=== PATIENT | male | born 1995 | race Caucasian/White ===

== ENCOUNTER 2017-01-18 17:18 | Emergency (ER) | payer BC ==
[~2017-01-18] VITALS: Ht 172.7 cm; Wt 68.0 kg
[2017-01-18 17:20] VITALS: BP 147/90; PULSE 115; RESP 24; TEMP 98.4; O2SAT 97
[2017-01-18] MEDS ORDERED: ALBU0.08 NEB (17:31)
[2017-01-18] MEDS ORDERED: SODIUM CHLOR 0.9% 1000 ML INJ 100 ML IV ONE (17:41)
[2017-01-18] MEDS ORDERED: SODIUM CHLOR 0.9% 1000 ML INJ 1,000 ML IV ONE ×2 (17:41)
[2017-01-18 17:45] VITALS: O2SAT 95
[2017-01-18] MEDS ORDERED: RESP: ALBUTEROL 2.5 MG/IPRATROPIUM 0.5 MG NEB (SCH) INH ONE (17:45)
[2017-01-18] MEDS ORDERED: SODIUM CHLORIDE 0.9% FLUSH 10 ML FLUSH IVF PRN (17:45)
[2017-01-18] MEDS ORDERED: methylPREDNISolone SOD SUCC 125 MG/2 ML VIAL IVP ONE (17:45)
[2017-01-18] MEDS: RESP: ALBUTEROL 2.5 MG/3 ML NEB (SCH) INH ×2 (17:59→19:27)
--- NOTE | 2017-01-18 18:05 | RADRPT ---
EXAM DATE/TIME: 01/18/2017 17:53 [place] COMPARISON: No previous studies available for comparison. INDICATIONS : Shortness of breath. Possible asthma attack. MEDICAL HISTORY : None. SURGICAL HISTORY : None. ENCOUNTER: Initial ACUITY: 1 day PAIN SCORE: 0/10 LOCATION: Bilateral chest FINDINGS: PA and lateral views of the chest demonstrate the lungs to be symmetrically aerated without evidence of mass, infiltrate or effusion. The cardiomediastinal contours are unremarkable. Osseous structure s are intact. CONCLUSION: No acute disease. German Kitchen MD on January 18, 2017 at 18:03 Board Certified Radiologist. This report was verified electronically.
[2017-01-18 18:09] LABS: AUTOMATED NEUTROPHIL # 8.1 TH/MM3 (1.8-7.7); BASOPHIL % 0.3 % (0.0-2.0); EOSINOPHIL # 1.3 TH/MM3 (0-0.4); EOSINOPHIL % 10.3 % (0.0-4.0); HEMATOCRIT 44.7 % (39.0-51.0); HEMO FLAGS DIFF FINAL; LYMPH % 15.5 % (9.0-44.0); LYMPHOCYTE # 1.9 TH/MM3 (1.0-4.8); MEAN CELL VOLUME 83.6 FL (80.0-100.0); MEAN CORPUSCULAR HEMOGLOBIN 28.1 PG (27.0-34.0); MEAN CORPUSCULAR HGB CONC 33.6 % (32.0-36.0); MONO % 8.8 % (0.0-8.0); NEUT % 65.1 % (16.0-70.0); PLATELET COUNT 223 TH/MM3 (150-450); RED BLOOD COUNT 5.35 MIL/MM3 (4.50-5.90); RED CELL DISTRIBUTION WIDTH 14.2 % (11.6-17.2); WHITE BLOOD COUNT 12.5 TH/MM3 (4.0-11.0)
[2017-01-18 18:25] LABS: ANION GAP 9 MEQ/L (5-15); AST (GOT) 19 U/L (15-39); BICARBONATE 25.9 MEQ/L (21.0-32.0); BLOOD UREA NITROGEN 8 MG/DL (7-18); CHLORIDE 103 MEQ/L (98-107); GLOMERULAR FILTRATION RATE 102 ML/MIN (>89); POTASSIUM 3.5 MEQ/L (3.5-5.1); SODIUM (NA) 138 MEQ/L (136-145)
[2017-01-18 18:29] LABS: ALKALINE PHOSPHATASE 97 U/L (45-117); ALT (GPT) 28 U/L (9-52); TOTAL BILIRUBIN ADULT 0.8 MG/DL (0.2-1.0)
[2017-01-18 18:30] LABS: BLOOD, URINE NEG (NEG); COMMENT (UR) CATH-CULT NOT IND; CULTURE IF INDICATED CATH CULTURE NOT IND; GLUCOSE,URINE NEG (NEG); KETONE, URINE NEG (NEG); NITRITE,URINE NEG (NEG); PH, URINE 7.5 (5.0-8.5); URINE COLOR LIGHT-YELLOW (YELLW/STRAW)
--- NOTE | 2017-01-18 19:57 | PD ---
HPI Chief Complaint: Respiratory Symptoms Time Seen by Provider: 17:31 Travel History International Travel<30 days: No Contact w/Intl Traveler<30days: No Traveled to known affect area: No History of Present Illness HPI This is a 21-year-old male with history of asthma, presented to the contents of rest her distress and wheezing. Patient states it started yesterday. His friend is at the bedside states that he tried to get him to come in yesterday however he did not want to at that time. He denies any fevers, chills. He reports wheezing despite using his nebulizer. There is no productive cough. There is no chest pain, chest pressure. PFSH Past Medical History Anxiety: Yes Tetanus Vaccination: < 5 Years Past Surgical History Surgical History: No Previous Surgery Social History Alcohol Use: No Tobacco Use: No Substance Use: No Allergies-Medications (Allergen,Severity, Reaction): Coded Allergies: No Known Allergies (Unverified , 01/18/17) Reported Meds & Prescriptions Reported Meds & Active Scripts Active Medrol Dosepak (Methylprednisolone) 4 Mg Dspk 4 Mg PO DIRECTED Per Pharmacist direction Zithromax Z-Adriano (Azithromycin) 250 Mg Dspk 250 Mg PO DIRECTED 500 MG (2 tabs) day 1, then 1 tab days 2-5. Reported Albuterol Neb (Albuterol Sulfate) 2.5 Mg/3 Ml Neb 2.5 Mg NEB Q4HR NEB While awake Review of Systems Except as stated in HPI: all other systems reviewed are Neg General / Constitutional: No: Fever, Chills HENT: No: Headaches, Lightheadedness Cardiovascular: No: Chest Pain or Discomfort, Palpitations Respiratory: Positive: Cough, Shortness of Breath, Wheezing Gastrointestinal: No: Nausea, Vomiting, Abdominal Pain Musculoskeletal: No: Myalgias, Pain Physical Exam Narrative GENERAL: Well-nourished, well-developed patient. SKIN: Focused skin assessment warm/dry. HEAD: Normocephalic. EYES: No scleral icterus. No injection or drainage. NECK: Supple, trachea midline. No JVD or lymphadenopathy. CARDIOVASCULAR: Regular rate and rhythm without murmurs, gallops, or rubs. RESPIRATORY: Bilateral diffuse expiratory wheezes. No Rales. GASTROINTESTINAL: Abdomen soft, non-tender, nondistended. MUSCULOSKELETAL: No cyanosis, or edema. NEUROLOGICAL: Awake and alert. Cranial nerves II through XII intact. Motor grossly within normal limits. Five out of 5 muscle strength in all muscle groups. Normal speech. Data Data Last Documented VS Vital Signs Date Time Temp Pulse Resp B/P Pulse Ox O2 Delivery O2 Flow Rate FiO2 01/18/17 17:45 95 Nasal Cannula 2 01/18/17 17:20 98.4 115 24 147/90 Orders Iv Access Insert/Monitor (01/18/17 17:35) Ecg Monitoring (01/18/17 17:35) Oximetry (01/18/17 17:35) Oxygen Administration (01/18/17 17:35) Sodium Chloride 0.9% Flush (Ns Flush) (01/18/17 17:45) Methylprednisolone So Succ Inj (Solumedr (01/18/17 17:45) Albuterol-Ipratropium Neb (Duoneb Neb) (01/18/17 17:45) Albuterol Neb (Albuterol Neb) (01/18/17 17:45) Complete Blood Count With Diff (01/18/17 17:41) Comprehensive Metabolic Panel (01/18/17 17:41) Lactic Acid Sepsis Protocol (01/18/17 17:41) Urinalysis - C+S If Indicated (01/18/17 17:41) Blood Culture (01/18/17 17:41) Chest, Pa & Lat (01/18/17 17:41) Blood Glucose (01/18/17 17:41) Sodium Chlor 0.9% 1000 Ml Inj (Ns 1000 M (01/18/17 17:41) Sodium Chlor 0.9% 1000 Ml Inj (Ns 1000 M (01/18/17 17:41) Sodium Chlor 0.9% 1000 Ml Inj (Ns 1000 M (01/18/17 17:41) Albuterol Neb (Albuterol Neb) (01/18/17 19:00) Labs Laboratory Tests Test 01/18/17 01/18/17 18:00 18:10 White Blood Count 12.5 TH/MM3 Red Blood Count 5.35 MIL/MM3 Hemoglobin 15.0 GM/DL Hematocrit 44.7 % Mean Corpuscular Volume 83.6 FL Mean Corpuscular Hemoglobin 28.1 PG Mean Corpuscular Hemoglobin 33.6 % Concent Red Cell Distribution Width 14.2 % Platelet Count 223 TH/MM3 Mean Platelet Volume 9.2 FL Neutrophils (%) (Auto) 65.1 % Lymphocytes (%) (Auto) 15.5 % Monocytes (%) (Auto) 8.8 % Eosinophils (%) (Auto) 10.3 % Basophils (%) (Auto) 0.3 % Neutrophils # (Auto) 8.1 TH/MM3 Lymphocytes # (Auto) 1.9 TH/MM3 Monocytes # (Auto) 1.1 TH/MM3 Eosinophils # (Auto) 1.3 TH/MM3 Basophils # (Auto) 0.0 TH/MM3 CBC Comment DIFF FINAL Differential Comment Sodium Level 138 MEQ/L Potassium Level 3.5 MEQ/L Chloride Level 103 MEQ/L Carbon Dioxide Level 25.9 MEQ/L Anion Gap 9 MEQ/L Blood Urea Nitrogen 8 MG/DL Creatinine 0.95 MG/DL Estimat Glomerular Filtration 102 ML/MIN Rate Random Glucose 88 MG/DL Lactic Acid Level 1.8 mmol/L Calcium Level 9.4 MG/DL Total Bilirubin 0.8 MG/DL Aspartate Amino Transf 19 U/L (AST/SGOT) Alanine Aminotransferase 28 U/L (ALT/SGPT) Alkaline Phosphatase 97 U/L Total Protein 7.4 GM/DL Albumin 3.7 GM/DL Urine Color LIGHT-YELLOW Urine Turbidity CLEAR Urine pH 7.5 Urine Specific [place] 1.007 Urine Protein NEG mg/dL Urine Glucose (UA) NEG mg/dL Urine Ketones NEG mg/dL Urine Occult Blood NEG Urine Nitrite NEG Urine Bilirubin NEG Urine Urobilinogen LESS THAN 2.0 MG/DL Urine Leukocyte Esterase NEG Urine WBC 1 /hpf Urine Bacteria /hpf Microscopic Urinalysis Comment CATH-CULT NOT IND MDM Medical Decision Making Medical Screen Exam Complete: Yes Emergency Medical Condition: Yes Differential Diagnosis Acute asthma exacerbation versus bronchitis versus pneumonia Narrative Course 21-year-old male presents with asthma exacerbation. The patient appeared to be in his mild to moderate respiratory distress when he arrived. Patient had diffuse external wheezes. White blood count count is slightly elevated at 12.3. Lactic acid is 1.8. The patient's been given 3 nebulizer treatments of albuterol and the first with Atrovent. He's also been given Solu-Medrol 125 mg times one dose. He'll be discharged with a prescription for Medrol Dosepak. He also be given a prescription for Z-Adriano. He is instructed return of he develops any worsening symptoms. Diagnosis Primary Impression: MILD INTERMITTENT ASTHMA WITH (ACUTE) EXACERBATION Med/Other Pt SpecificInfo: Prescription(s) given Scripts Methylprednisolone Dosepak (Medrol Dosepak)4 Mg Dspk4 Mg PO DIRECTED #1 DSPK Ref 0 Per Pharmacist direction Prov:Kyler Smith MD 01/18/17 Azithromycin (Zithromax Z-Adriano)250 Mg [id number] Mg PO DIRECTED #1 DSPK Ref 0 500 MG (2 tabs) day 1, then 1 tab days 2-5. Prov:Kyler Smith MD 01/18/17 Disposition: 01 DISCHARGE HOME Condition: Stable Kyler Smith MD Jan 18, 2017 19:57
[2017-01-18] MEDS ORDERED: MEDR4PAK PO (20:10)
[2017-01-18] MEDS ORDERED: ZITHTAB PO (20:10)
== END 2017-01-18 20:36 | disposition home or self-care (01) ==
LOC: NEPD 17:18
DX: J45.21 Mild intermittent asthma with (acute) exacerbation (principal); F41.9 Anxiety disorder, unspecified
CPT/HCPCS: 71020; 80053; 81001; 83605; 85025; 87040; 94640; 94664; 99283; J7030; J7613